=== PATIENT | female | born 1960 | race Caucasian/White ===

== ENCOUNTER → 2020-06-14 | Outpatient (CLI) | payer OTHER ==
[~2020-06-14] MED LIST: ASPIRIN81 MG PO; BASAGLAR K100 UNIT/1 SQ; CINNAMON500 MG PO; FISH OIL 1,0001 EAC3 PO; GLUCOPHAGE1000 MG PO; GLUCOTROL5 MG PO; JANUVIA PO; LIPITOR TAB 2020 MG PO; TRICOR145 MG PO; XANAX0.25 MG PO; ZANTAC 150 MG150 MG GT; ZESTRIL2.5 MG PO; ZOFRAN4 MG PO
== END ==
LOC: EXRD 08:25
DX: B18.2 Chronic viral hepatitis C (principal); K80.20 Calculus of gallbladder without cholecystitis without obstruction; R93.2 Abnormal findings on diagnostic imaging of liver and biliary tract
CPT/HCPCS: 76705

== ENCOUNTER → 2020-07-22 | Outpatient (CLI) | payer OTHER | LOC: NM 09:00 | DX: R11.0 Nausea (principal) | CPT/HCPCS: 36415; 78264; 80076; A9541 ==

== ENCOUNTER → 2020-12-13 | Outpatient (CLI) | payer OTHER | LOC: EXRD 08:21 | DX: B18.2 Chronic viral hepatitis C (principal); K76.0 Fatty (change of) liver, not elsewhere classified; K80.20 Calculus of gallbladder without cholecystitis without obstruction | CPT/HCPCS: 76705 ==

== ENCOUNTER → 2021-07-25 | Outpatient (CLI) | payer MEDICARE, OTHER | LOC: US 07:29 | DX: B18.2 Chronic viral hepatitis C (principal); K80.20 Calculus of gallbladder without cholecystitis without obstruction | CPT/HCPCS: 76705 ==

== ENCOUNTER → 2021-10-04 | Outpatient (CLI) | payer MEDICARE, OTHER | LOC: RAD 11:10 | DX: M25.511 Pain in right shoulder (principal) | CPT/HCPCS: 73030 ==